=== PATIENT | female | born 1985 | race American Indian/Alaskan Native ===

== ENCOUNTER 2017-12-01 06:02 | Emergency (ER) | payer SELFPAY ==
--- NOTE | 2017-12-01 08:53 | Emergency Department Report ---
HPI - General Chief Complaint: Upper Respiratory Infection Time Seen by Provider: 12/01/17 08:50 - HPI HPI: Patient reports that she has been having body ache, sore throat earache and chest pain with coughing along with back pain with coughing and this is pain getting progressively worse over the past 4 days. She is complaining of pain to her chest and back with cough and 8-10 and pain to her throat and bodyaches 5 -6 out of 10. Chest and back pain feels sore body ache and sore throat is achy. Pain is worse with coughing and moving around and better at rest. Over- the-counter cold and cough medication taken without any relief. She reports that she is wheezing and she denies any shortness of breath. Denies any cardiac related problems. Denies any fever. Denies any headache or neck pain or stiffness. Denies any abdominal pain. Denies any urinary burning frequency or urgency. Patient says she started her menstrual cycle today. ED Past Medical Hx - Past Medical History Previous Medical History?: No Hx Asthma: No - Surgical History Past Surgical History?: No - Family History Family history: no significant - Social History Smoking Status: Never Smoker Substance Use Type: Alcohol - Medications Home Medications: Home Medications Medication Instructions Recorded Confirmed Last Taken Type ALBUTEROL Inhaler [ProAir HFA 2 puff IH Q6H PRN #1 inhalation 12/01/17 Unknown Rx Inhaler] Cetirizine HCl [ZyrTEC] 10 mg PO QDAY 14 Days #14 capsule 12/01/17 Unknown Rx Ibuprofen [Motrin 600 MG tab] 600 mg PO Q8H PRN #15 tablet 12/01/17 Unknown Rx Oseltamivir [Tamiflu] 75 mg PO BID 5 Days #10 cap 12/01/17 Unknown Rx guaiFENesin/CODEINE [Robitussin AC] 5 ml PO Q8H PRN 5 Days #75 ml 12/01/17 Unknown Rx predniSONE [Deltasone] 60 mg PO QDAY 5 Days #5 tablet 12/01/17 Unknown Rx ED Review of Systems ROS: Stated complaint: CHEST PAIN,BACK PAIN,SORE THROAT Other details as noted in HPI Comment: All other systems reviewed and negative Constitutional: no symptoms reported Eyes: denies: eye pain, eye discharge ENT: ear pain, throat pain, congestion. denies: dental pain, epistaxis Respiratory: cough, wheezing. denies: orthopnea, SOB at rest, stridor Cardiovascular: chest pain (with cough ). denies: palpitations, dyspnea on exertion, orthopnea, edema, syncope, paroxysmal nocturnal dyspnea Gastrointestinal: denies: abdominal pain, nausea, vomiting, diarrhea, constipation Genitourinary: denies: urgency, dysuria, frequency, hematuria, discharge Musculoskeletal: back pain, myalgia. denies: joint swelling, arthralgia Skin: denies: rash Neurological: denies: headache Physical Exam - Physical Exam Vital Signs: Vital Signs 12/01/17 07:36 Temperature 98.5 F Pulse Rate 78 Respiratory 18 Rate Blood Pressure 120/82 O2 Sat by Pulse 100 Oximetry General: This is a 32-year-old female well-nourished well-developed that is nontoxic in appearance but appear mildly ill. Physical Exam: Head: Normocephalic, atraumatic, no abrasion, no bruising and no contusion. Eyes: Biateral pupils equal and reactive to light, bilateral EOM intact.. Bilateral conjunctival and sclera without injection, normal accommodation. No nystagmus Mouth: Moist, no pharyngeal exudate or erythema. No peritonsillar abscesses. Uvula is midline and oral airways patent. Ears: Bilateral TM congested without erythema. Bilateral EAC without any redness swelling or drainage. No mastoid bone tenderness Nose: Bilateral nasal turbinates congested with erythema and clear drainage. Maxillary and frontal sinuses non-tender to palpate. Neck: Supple, No Cervical adenopathy, full range of motion and no C-spine tenderness. No swelling or tracheal deviation normal reflexes Cardiovascular: S1, S2. Regular rate and rhythm. No murmur. Capillary refill is less then 3 seconds. Lungs: Scattered wheezes into upper lung aguiar No rhonchi,or rales. No chest wall tenderness. No chest contusion. No bruising to chest. Dry cough MSK: Strength 5/5 in all extremities. No joint deformity or crepitus. Normal inspection. Full range of motion to all extremities. No laceration, abrasion or ecchymotic area noted. Abdomen: Non-tender to palpate in all quadrants, no guarding or rebound tenderness, positive bowel sounds in all quadrants. No CVA tenderness. No hernia, bruit or mass. No rigidity or distention. Extremities: No clubbing, cyanosis or edema. +2 pulses. No neurovascular compromise Skin: Clean, dry and intact. No rash or lesions. Neurological: GCS at 15, Pt is alert and oriented 3 speech is clear period. Back: No vertebral tenderness, no paraspinal tenderness. Normal inspection Psych: Normal mood and behavior ED Course Vital Signs 12/01/17 07:36 Temperature 98.5 F Pulse Rate 78 Respiratory 18 Rate Blood Pressure 120/82 O2 Sat by Pulse 100 Oximetry Vital Signs 12/01/17 12/01/17 12/01/17 07:36 09:27 10:00 Temperature 98.5 F Pulse Rate 78 Pulse Rate [ 78 Anterior Bilateral Throughout] Respiratory 18 Rate Respiratory 18 18 Rate [Anterior Bilateral Throughout] Blood Pressure 120/82 Blood Pressure [Left] O2 Sat by Pulse 100 Oximetry 12/01/17 11:14 Temperature 98.2 F Pulse Rate 73 Pulse Rate [ Anterior Bilateral Throughout] Respiratory 20 Rate Respiratory Rate [Anterior Bilateral Throughout] Blood Pressure Blood Pressure 113/68 [Left] O2 Sat by Pulse 99 Oximetry - Reevaluation(s) Reevaluation #1: 12/01/17 10:00 receive albuterol 5 mg and Atrovent 0.5 mg nebulizer, Zofran 4 mg ODT, Motrin 600 mg by mouth in the emergency room. Reevaluation #2: 12/01/17 11:03 Influenza A and B-, chest x-ray reveals no acute cardiopulmonary findings. Patient is feeling better and she is able to tolerate 2 cups of orange juice without any difficulties. ED Medical Decision Making - Lab Data Influenza A and B- - EKG Data -: EKG Interpreted by Me (interpreted by attending physician) EKG shows normal: sinus rhythm (sinus rhythm at 86 bpm) Rate: normal - EKG Data Interpretation: no acute changes, normal EKG - Radiology Data Radiology results: report reviewed No acute cardiopulmonary findings - Medical Decision Making ED course: She reports flulike symptoms with chest and back pain. EKG sinus rhythm with no acute findings, chest x-ray without any acute cardiopulmonary findings. Patient with low cardiac risk score. Influenza A and B-, strep negative. I discussed resuscitation and told her that she has acute bronchitis and viral syndrome and treatment plans along with follow-up discussed and she voiced understanding. Patient was given albuterol 5 mg and Atrovent 0.5 mg nebulizer treatment in emergency room which relieved her wheezing and her lungs sounds clear status post treatment. She was given prednisone 60 mg, Zofran 4 mg ODT and Motrin 600 mg by mouth. Patient feels better body aches resolved. I discussed the patient she will need to follow up with her primary care physician in 2 days and if she does not have one she'll need to follow-up at [facility]. She is able to tolerate oral liquids without any difficulties. Emphasized hydration and rest. Patient discharged home with prescription for albuterol, prednisone, Tamiflu, Zyrtec, Motrin and, guaifenesin with codeine . Discharged from ED in stable condition Critical care attestation.: If time is entered above; I have spent that time in minutes in the direct care of this critically ill patient, excluding procedure time. ED Disposition Clinical Impression: Acute viral syndrome, Cough in adult, Atypical chest pain, Body aches Acute bronchitis Qualifiers: Bronchitis organism: unspecified organism Qualified Code(s): J20.9 - Acute bronchitis, unspecified Disposition: - TO HOME OR SELFCARE Is pt being admited?: No Does the pt Need Aspirin: No Condition: Stable Instructions: Chest Pain (ED), Viral Pneumonia (ED), Acute Bronchitis (ED), Acute Cough (ED) Additional Instructions: Please increase fluid intake to 2-3 liters of fluids daily. [place] juice,water and gatorade Take medication as prescribed Follow-up primary care physician and if he do not have one he can follow up at some [facility] in 2 days Take medication as prescribed Please rest for [address] or operate heavy machinery while taking and cough medicine as this medication causes drowsiness Prescriptions: ALBUTEROL Inhaler [ProAir HFA Inhaler] 2 puff IH Q6H PRN #1 inhalation PRN Reason: COUGH/WHEEZE Cetirizine HCl [ZyrTEC] 10 mg PO QDAY 14 Days #14 capsule guaiFENesin/CODEINE [Robitussin AC] 5 ml PO Q8H PRN 5 Days #75 ml PRN Reason: Cough Ibuprofen [Motrin 600 MG tab] 600 mg PO Q8H PRN #15 tablet PRN Reason: Pain Oseltamivir [Tamiflu] 75 mg PO BID 5 Days #10 cap predniSONE [Deltasone] 60 mg PO QDAY 5 Days #5 tablet Referrals: PRIMARY CARE, [Primary Care Provider] - 12/03/17 [facility] [Outside] - 12/03/17 Forms: Work/School Release Form(ED)
[2017-12-01] MEDS ORDERED: MOTRIN PO ONE (09:14)
[2017-12-01] MEDS ORDERED: ZOFRAN ODT PO ONE (09:14)
[2017-12-01] MEDS ORDERED: DELTASONE PO ONE (09:15)
[2017-12-01] MEDS ORDERED: PROVENTIL IH ONE (09:15)
[2017-12-01] MEDS ORDERED: ATROVENT IH ONE (09:15)
--- NOTE | 2017-12-01 10:33 | XRay Report ---
ROUTINE CHEST, TWO VIEWS: HISTORY: Cough, fever. The trachea, heart, mediastinal contour, lung aguiar and bony thorax are unremarkable. IMPRESSION: Unremarkable chest x-ray.
[2017-12-01 11:15] VITALS: BP 113/68
== END 2017-12-01 11:30 | disposition home or self-care (01) ==
LOC: ED 06:02
DX: J20.9 Acute bronchitis, unspecified (principal); B34.9 Viral infection, unspecified; M54.9 Dorsalgia, unspecified
CPT/HCPCS: 71046; 87116; 87400; 87430; 93005; 93010; 94640; 99283; J7512; Q0162